=== PATIENT | male | born 1980 | race African-American/Black ===

== ENCOUNTER 2020-11-10 19:40 | Emergency (ER) | payer OTHER ==
[~2020-11-10] VITALS: Ht 185.4 cm; Wt 100.1 kg
[2020-11-10] MEDS ORDERED: ORPHENADRINE CITRATE 60 MG/2 ML VIAL. IM ONE (21:30)
[2020-11-10] MEDS ORDERED: KETOROLAC 30 MG/ML VIAL. IM ONE (21:30)
[2020-11-10 21:52] VITALS: BP 150/91
[2020-11-10] MEDS ORDERED: NAPR-514 PO (23:06)
[2020-11-10] MEDS ORDERED: CYCL10TA2 PO (23:06)
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
== END 2020-11-10 23:43 | disposition home or self-care (01) ==
LOC: ER 19:40
DX: S16.1XXA Strain of muscle, fascia and tendon at neck level, initial encounter (principal); S29.012A Strain of muscle and tendon of back wall of thorax, initial encounter; V49.49XA Driver injured in collision with other motor vehicles in traffic accident, initial encounter; Y93.89 Activity, other specified; Y92.410 Unspecified street and highway as the place of occurrence of the external cause; Y99.8 Other external cause status
CPT/HCPCS: 96372; 99283; J1885